=== PATIENT | male | born 1960 | race Caucasian/White ===

== ENCOUNTER 2018-10-31 07:26 | Day surgery (SDC) | payer MEDICARE, OTHER ==
[~2018-10-31] VITALS: Ht 170.2 cm; Wt 89.5 kg
[~2018-10-31 07:26] MED LIST: SODIUM CHLORIDE 0.9% 1,000 ML IV ONE
[2018-10-31] MEDS ORDERED: SODIUM CHLORIDE 0.9% 1,000 ML IV ONE (07:44)
[2018-10-31 08:20] LABS: BASOPHILS % (AUTO) 1.2 % (0.0-2.0); EOSINOPHILS % (AUTO) 3.8 % (1.0-6.0); HEMATOCRIT 37.5 % (41-53); HEMOGLOBIN 12.4 g/dL (13.5-17.5); LYMPHOCYTES # (AUTO) 1.4 K/uL (1.0-4.8); LYMPHOCYTES % (AUTO) 24.2 % (22.0-44.0); MEAN CORPUSCULAR HEMOGLOBIN 32.6 pg (26.0-34.0); MEAN CORPUSCULAR VOLUME 99 fL (80-100); MONOCYTES # (AUTO) 0.7 K/uL (0.1-1.0); MONOCYTES % (AUTO) 12.2 % (2.0-9.0); NEUTROPHILS # (AUTO) 3.3 K/uL (1.8-7.7); NEUTROPHILS % (AUTO) 58.6 % (40.0-70.0); PLATELET COUNT (AUTO) 225 K/uL (150-450); RED CELL DISTRIBUTION WIDTH 13.1 % (11.5-14.5)
[2018-10-31 08:32] LABS: ANION GAP 7 mmol/L (8-16); CALCIUM, TOTAL 9.5 mg/dL (8.8-10.5); CARBON DIOXIDE 30 mmol/L (22-29); CHLORIDE 101 mmol/L (98-107); CREATININE 1.18 mg/dL (0.60-1.30); GLOMERULAR FILTR. RATE CALC > 60 mL/min (>60); GLUCOSE,RANDOM 101 mg/dL (70-110); POTASSIUM 3.5 mmol/L (3.5-5.1); PROTHROMBIN TIME 10.6 SEC (9.4-11.6); SODIUM SERUM 138 mmol/L (136-145); UREA NITROGEN, BLOOD 16 mg/dL (7-18)
[2018-10-31 08:37] LABS: ALANINE AMINOTRANSFERASE 25 U/L (12-78); ALBUMIN 3.9 g/dL (3.4-5.0); ALKALINE PHOSPHATASE 65 U/L (46-116); ASPARTATE AMINOTRANSFERASE 21 U/L (15-37); BILIRUBIN,TOTAL 0.6 mg/dL (0.1-1.0); TOTAL PROTEIN, SERUM 6.8 g/dL (6.4-8.2)
[2018-10-31] MEDS ORDERED: OXYC18CA PO (08:54)
[2018-10-31] MEDS ORDERED: METO50 PO (08:54)
[2018-10-31] MEDS ORDERED: SULF500T60 PO (08:54)
[2018-10-31] MEDS ORDERED: CYCL10 PO (08:54)
[2018-10-31] MEDS ORDERED: HYDR-4455 PO (08:54)
[2018-10-31] MEDS ORDERED: BUSP10TA23 PO (08:54)
[2018-10-31] MEDS ORDERED: ATOR20TA86 PO (08:54)
[2018-10-31] MEDS ORDERED: OMEP20 PO (08:54)
[2018-10-31] MEDS ORDERED: ASPI81 PO (08:54)
[2018-10-31] MEDS ORDERED: MELO10CA PO (08:54)
[2018-10-31] MEDS ORDERED: SECU150P2 IJ (08:57)
[2018-10-31] MEDS ORDERED: TAMS-1 PO (08:57)
[2018-10-31] MEDS ORDERED: DICL2100G TP (08:57)
[2018-10-31] MEDS ORDERED: TOPI25 PO (08:59)
[2018-10-31] MEDS ORDERED: XALA2.5OS OU (09:00)
[2018-10-31] MEDS ORDERED: IOHEXOL 300 MG/ML 150 ML VIAL ONE (09:41)
[2018-10-31] MEDS ORDERED: SODIUM BICARBONATE 50 MEQ/50 ML VIAL ONE (09:41)
[2018-10-31] MEDS ORDERED: LIDOCAINE/PF 1% 30 ML VIAL ONE (09:41)
[2018-10-31] MEDS ORDERED: HEPARIN SODIUM 1000 UNITS/NS 1,000 ML ONE (09:41)
[2018-10-31 09:51] VITALS: BP 114/62
[2018-10-31] MEDS ORDERED: VERAPAMIL HCL 2.5 MG/ML 2 ML VIAL ONE (09:56)
[2018-10-31] MEDS ORDERED: NITROGLYCERIN 50 MG/D5% WATER 250 ML ONE (09:56)
[2018-10-31] MEDS ORDERED: FentaNYL CITRATE-PF 100 MCG/2 ML VIAL ONE (10:21)
[2018-10-31] MEDS ORDERED: MIDAZOLAM HCL 2 MG/2 ML VIAL ONE (10:21)
[2018-10-31] MEDS ORDERED: HEPARIN SODIUM 1000 UNITS/NS 1,000 ML IARTER ONE (10:28)
[2018-10-31] MEDS ORDERED: LIDOCAINE 1% 30 ML/SOD BICARB 8.4% 4 ML SQ ONE (10:30)
[2018-10-31] MEDS ORDERED: NITROGLYCERIN/D5W 50 MG/250 ML IV BOTTLE IARTER ONE (10:30)
[2018-10-31] MEDS ORDERED: IOHEXOL 300 MG/ML 150 ML VIAL IARTER ONE (10:30)
[2018-10-31] MEDS ORDERED: HEPARIN SODIUM,PORCINE 5,000 UNITS/ML VIAL IVP ONE (10:30)
[2018-10-31] MEDS ORDERED: VERAPAMIL HCL 2.5 MG/ML 2 ML VIAL IARTER ONE (10:30)
[2018-10-31] MEDS ORDERED: MIDAZOLAM HCL 2 MG/2 ML VIAL IVP ONE (10:45)
[2018-10-31] MEDS ORDERED: FentaNYL CITRATE-PF 100 MCG/2 ML VIAL IVP ONE (10:45)
[2018-10-31 10:56] VITALS: BP 110/65
== END 2018-10-31 15:00 | disposition home or self-care (01) ==
LOC: CATHLAB 07:26
PROVIDERS: ATTEND Internal Medicine Cardiovascular Disease
DX: R07.89 Other chest pain (principal); R94.30 Abnormal result of cardiovascular function study, unspecified; I10 Essential (primary) hypertension; E78.00 Pure hypercholesterolemia, unspecified; Z82.49 Family history of ischemic heart disease and other diseases of the circulatory system; Z87.891 Personal history of nicotine dependence; Z98.890 Other specified postprocedural states
CPT/HCPCS: 36415; 80053; 85025; 85610; 85730; 93005; 93458; 99152; 99153; J1644 ×2; J2250; J3010; J3490 ×4; J7030; Q9967